=== PATIENT | female | born 1945 | race Caucasian/White ===

== ENCOUNTER 2018-12-04 08:45 | Inpatient (IN) | payer OTHER ==
[2018-12-04 09:23] VITALS: BMI 34.2
--- NOTE | 2018-12-04 10:30 | HP ---
CIWA Score Nausea/Vomitin Muscle Tremors: 4-Moderate,w/Arms Extend Anxiety: 4-Mod. Anxious/Guarded Agitation: 4-Moderately Restless Paroxysmal Sweats: 2 Orientation: 1-Uncertain about Date Tacttile Disturbances: 0-None Auditory Disturbances: 0-None Visual Disturbances: 2-Mild Sensitivity Headache: 0-None Present CIWA-Ar Total Score: 19 - Admission Criteria OASAS Guidelines: Admission for Medically Managed Detox: Requires at least one of the followin. CIWA greater than 12 2. Seizures within the past 24 hours 3. Delirium tremens within the past 24 hours 4. Hallucinations within the past 24 hours 5. Acute intervention needed for co occurring medical disorder 6. Acute intervention needed for co occurring psychiatric disorder 7. Severe withdrawal that cannot be handled at a lower level of care (continued vomiting, continued diarrhea, abnormal vital signs) requiring intravenous medication and/or fluids 8. Admission [facility] Allergies/Adverse Reactions: Allergies Allergy/AdvReac Type Severity Reaction Status Date / Time Sulfa (Sulfonamide Allergy Verified 12/04/18 10:12 Antibiotics) sulfa AdvReac Uncoded 12/04/18 10:12 History of Present Illness: Search Terms: brandy hale, 1945 Search Date: 12/04/2018 10:22:41 AM The Drug Utilization Report below displays all of the controlled substance prescriptions, if any, that your patient has filled in the last twelve months. The information displayed on this report is compiled from pharmacy submissions to the Department, and accurately reflects the information as submitted by the pharmacies. This report was requested by: Geena Cortes | Reference #: [id number] Others' Prescriptions Patient Name: Brandy Hale Date: 1945 Address: [address] [place] [address] Sex: Female Rx Written Rx Dispensed Drug Quantity Days Supply Prescriber Name 11/27/2018 11/27/2018 oxycodone-acetaminophen 7.5-325 mg tablet 120 30 Pugni, Rowan SWATCH FOLDER-C 10/13/2018 11/11/2018 lyrica 150 mg capsule 90 30 Pugni, Rowan SWATCH FOLDER-C 10/31/2018 10/31/2018 oxycodone-acetaminophen 7.5-325 mg tablet 120 30 Pugni, Rowan SWATCH F[employer]DER-C 07/17/2018 10/14/2018 lyrica 150 mg capsule 90 30 Pugni, Rowan SWATCH FOLDER-C 10/01/2018 10/01/2018 oxycodone-acetaminophen 10-325 mg tab 90 30 Pugni, Rowan SWATCH FOLDER-C 07/17/2018 09/15/2018 lyrica 150 mg capsule 90 30 Pugni, Rowan SWATCH FOLDER-C 09/08/2018 09/09/2018 oxycodone-acetaminophen 7.5-325 mg tablet 120 30 Pugni, Rowan SWATCH F[employer]DER-C 09/04/2018 09/04/2018 clonazepam 1 mg tablet 30 15 Karl Hutchinson MD 07/17/2018 08/14/2018 lyrica 150 mg capsule 90 30 Pugni, Rowan SWATCH F[employer]DER-C 08/13/2018 08/13/2018 oxycodone-acetaminophen 7.5-325 mg tablet 120 30 Pugni, Rowan SWATCH F[employer]DER-C 07/17/2018 07/17/2018 oxycodone-acetaminophen 7.5-325 mg tablet 120 30 Pugni, Rowan SWATCH FOLDER-C 05/21/2018 07/16/2018 lyrica 150 mg capsule 90 30 Pugni, Rowan SWATCH FOLDER-C 05/21/2018 06/18/2018 lyrica 150 mg capsule 90 30 Pugni, Rowan SWATCH FOLDER-C 06/18/2018 06/18/2018 oxycodone-acetaminophen 7.5-325 mg tablet 120 30 Pugni, Rowan SWATCH FOLDER-C 05/21/2018 05/21/2018 oxycodone-acetaminophen 7.5-325 mg tablet 120 30 Pugni, Rowan SWATCH FOLDER-C 05/21/2018 05/21/2018 lyrica 150 mg capsule 90 30 Pugni, Rowan SWATCH FOLDER-C 04/17/2018 04/17/2018 lyrica 150 mg capsule 90 30 Pugni, Rowan SWATCH FOLDER-C 04/17/2018 04/17/2018 oxycodone-acetaminophen 7.5-325 mg tablet 120 30 Pugni, Rowan SWATCH F[employer]DER-C 04/05/2018 04/05/2018 clonazepam 1 mg tablet 60 30 Karl Hutchinson MD 03/19/2018 03/19/2018 oxycodone-acetaminophen 7.5-325 mg tablet 120 30 Pugni, Rowan SWATCH F[employer]DER-C 01/17/2018 03/17/2018 lyrica 150 mg capsule 90 30 Pugni, Rowan SWATCH FOLDER-C 02/18/2018 02/18/2018 oxycodone-acetaminophen 7.5-325 mg tablet 120 30 Pugni, Rowan SWATCH FOLDER-C 01/17/2018 02/16/2018 lyrica 150 mg capsule 90 30 Pugni, Rowan SWATCH FOLDER-C 01/17/2018 01/17/2018 oxycodone-acetaminophen 7.5-325 mg tablet 120 30 Pugni, Rowan SWATCH F[employer]DER-C 01/17/2018 01/17/2018 lyrica 150 mg capsule 90 30 Pugni, Rowan SWATCH FOLDER-C 12/30/2017 12/30/2017 oxycodone-acetaminophen 5-325 mg tablet 40 5 Ester Lemus [employer] 11/20/2017 12/20/2017 lyrica 150 mg capsule 90 30 Pugni, Rowan SWATCH FOLDER-C 12/20/2017 12/20/2017 oxycodone-acetaminophen 7.5-325 mg tablet 120 30 Pugni, Rowan SWATCH FOLDER-C pt here requesting detox from etoh use , reprots since 2 years ago , current daily use 6-7 beers and 2 shots and 12 -pk/day , starts drinking around " any time " , denies seizures , + blackouts , + tremors , + falls while intoxicated most recently 1 week ago , taken to [facility] , denies frx , reports hypothermia was found by police . reports lates tuse this morning4 am 9 cans of beer pt is very poor historian , tangential with dissociative ideation. pmhx htn, dm , OA walker 2/2 knee issues , pneumonia , retinitis pigmentosa , wt loss 391 lbs previously currently 193 lbs . , toxemia gravidarum pshx : btl , nikole, appy , constance , left tkr x 5 and revision/ debridement , r tkr , cts shauna , psych : depression on Paxil, denies Si / hi , prior suicide attempt 2 years ago immediately after of by taking 20 lyrica called police " I just wanted to fall asleep" Exam Limitations: Clinical Condition - Ebola screening Have you traveled outside of the country in the last 21 days: No Have you had contact with anyone from an Ebola affected area: No Have you been sick,other than usual withdrawal symptoms: No Do you have a fever: No - Review of Systems Constitutional: See HPI EENT: reports: See HPI Respiratory: reports: No Symptoms reported Cardiac: reports: No Symptoms Reported GI: reports: See HPI : reports: No Symptoms Reported Musculoskeletal: reports: Joint Pain, Joint Stiffness Integumentary: reports: Bruising (left arm bruising claims was carrying bed frame , left shoulder bruising left shoulder) Neuro: reports: Headache Endocrine: reports: No Symptoms Reported Psychiatric: reports: Orientated x3, Agitated, Anxious Patient History - Patient Medical History Hx Asthma: Yes Hx Chronic Obstructive Pulmonary Disease (COPD): No Hx Cardiac Disorders: No Hx Hypertension: Yes Hx Seizures: No Hx Diabetes: Yes Hx Gastrointestinal Disorders: No Hx Genitourinary Disorders: No Hx Sexually Transmitted Disorders: No Hx Renal Disease (ESRD): No - Patient Surgical History Past Surgical History: Yes Hx Appendectomy: Yes (1984) Hx Cholecystectomy: Yes (1984) Other Surgical History: tubaligation years ago hysterectomy 1989, 5 knee replacement left foot 1998 - PPD History Previous Implant?: Yes Documented Results: Negative w/o proof - Reproductive History Patient : No - Smoking Cessation Smoking history: Never smoked Hx Chewing Tobacco Use: No Initiated information on smoking cessation: No - Substances Abused Alcohol Route: Oral Frequency: Daily Amount used: 4 shots whisky, 25 beers (12 ounces bottles) Age of first use: 71 Date of Last Use: 12/04/18 Family Disease History - Family Disease History Family Disease History: Other: Mother (retinitis pigmentosa ), Daughter ( retinitis pigmentosa ) Other Family History: 2 children , first d. 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 , lower and upper edentulous , upper dentures cannot follow penlight 2/ 2 blindness) Respiratory: Yes: Chest Non-Tender, Lungs Clear, Normal Breath Sounds Neck: Yes: No masses,lesions,Nodules, Trachea in good position Cardiology: Yes: Regular Rhythm, Regular Rate, S1, S2 Abdominal: Yes: Non Tender, Soft, Protuberent Genitourinary: Yes: Within Normal Limits Back: Yes: Normal Inspection Musculoskeletal: Yes: Joint Stiffness, Other (unsteady gait, using walker extensive scarring left knee w/ mm loss quadriceps and inability to fully extend left knee) Extremities: Yes: Tremors, Other (shauna tkr , unsteady gait , using walker for ambulation , left thigh w/ large mm loss quadriceps , cennot fully extend left leg) Neurological: Yes: Motor Strength 5/5, Depressed Affect Integumentary: Yes: Other (surgical scarring ecchymosis left arm , left shoulder petechiae UE) - Diagnostic (1) Alcohol abuse Current Visit: Yes Status: Acute BHS Breath Alcohol Content Breath Alcohol Content: 0 Urine Pregancy Test - Result Urine Test Results: Negative - NO line present Urine Drug Screen - Results Drug Screen Negative: No Urine Drug Screen Results: BZO-Benzodiazepines, OXY-Oxycodone Inpatient Rehab Admission - Rehab Decision to Admit Inpatient rehab admission?: No
[2018-12-04] MEDS ORDERED: BISMUTH SUBSALICYLATE 262 MG/15 ML BTL PO PRN (10:42)
[2018-12-04] MEDS ORDERED: MENTHOL/PHENOL 1 EACH UD MM PRN (10:42)
[2018-12-04] MEDS ORDERED: MELATONIN 5 MG TABLETS PO PRN (10:42)
[2018-12-04] MEDS ORDERED: ACETAMINOPHEN 325 MG TABLET (FP) PO PRN ×2 (10:42)
[2018-12-04] MEDS ORDERED: MAGNESIUM HYDROX 2400MG/30ML ORAL SUSPENSION 30 ML CUP PO PRN (10:42)
[2018-12-04] MEDS ORDERED: MAG HYDROX/AL HYDROX/SIMETH 30 ML UNIT-DOSE CUP PO PRN (10:42)
[2018-12-04] MEDS ORDERED: MAGNESIUM CITRATE 300 ML BOTTLE PO PRN (10:42)
[2018-12-04] MEDS: chlordiazePOXIDE HCL 25 MG CAPSULE PO PRN (14:46)
[2018-12-04] MEDS: FUROSEMIDE 40 MG TABLET (FP) PO SCH (15:11)
[2018-12-04] MEDS: chlordiazePOXIDE HCL 25 MG CAPSULE PO SCH ×2 (18:20→23:07)
[2018-12-04] MEDS: THIAMINE HCL 100 MG TABLET (FP) PO SCH (23:07)
[2018-12-05] MEDS: chlordiazePOXIDE HCL 25 MG CAPSULE PO SCH ×4 (06:16→23:12)
[2018-12-05 10:26] LABS: ALBUMIN 3.9 g/dl (3.4-5.0); ALK PHOS 192 U/L (45-117); ANION GAP 10 MMOL/L (8-16); BILIRUBIN,TOTAL 0.4 mg/dL (0.2-1); BLOOD UREA NITROGEN 18 mg/dL (7-18); CALCIUM 8.7 mg/dL (8.5-10.1); CHLORIDE 101 mmol/L (98-107); CO2 29 mmol/L (21-32); CREATININE 1.3 mg/dL (0.55-1.3); GLUCOSE,RANDOM 107 mg/dL (74-106); POTASSIUM 3.7 mmol/L (3.5-5.1); SGOT/AST 21 U/L (15-37); SGPT/ALT 20 U/L (13-61); SODIUM 139 mmol/L (136-145); TOT PROT 6.8 g/dl (6.4-8.2)
[2018-12-05 10:33] LABS: HEMATOCRIT 38.5 % (32.4-45.2); HEMOGLOBIN 12.1 GM/dL (10.7-15.3); MCHC 31.4 g/dl (32.0-36.0); MEAN CELL VOLUME 89.1 fl (80-96); MEAN PLT VOLUME 11.7 fl (7.5-11.1); PLATELET COUNT 253 K/MM3 (134-434); RBC 4.32 M/mm3 (3.60-5.2); RDW 17.3 % (11.6-15.6); WHITE BLOOD COUNT 6.9 K/mm3 (4.0-10.0)
[2018-12-05] MEDS: FUROSEMIDE 40 MG TABLET (FP) PO SCH (10:42)
[2018-12-05] MEDS: PRENATAL VITAMINS W/ FOLIC ACID TABLET (FP) PO SCH (10:42)
[2018-12-05] MEDS ORDERED: PNEUMOC 13-VAL CONJ-DIP CRM/PF 0.5 ML DISP.SYRIN IM ONE (12:00)
[2018-12-05] MEDS: IBUPROFEN 400 MG TABLET (FP) PO PRN (15:03)
[2018-12-05] MEDS: chlordiazePOXIDE HCL 25 MG CAPSULE PO PRN (15:03)
[2018-12-05] MEDS ORDERED: ALBUTEROL SO4 0.083% IH SOL 2.5 MG/3 ML VIAL.NEB. NEB PRN (16:49)
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
--- NOTE | 2018-12-05 18:28 | PN ---
[facility] CIWA - CIWA Score Nausea/Vomitin-No Nausea/No Vomiting Muscle Tremors: 2 Anxiety: 4-Mod. Anxious/Guarded Agitation: 1-Slight > Activity Paroxysmal Sweats: No Perspiration Orientation: 4Disoriented Place/Person Tacttile Disturbances: 2-Mild Itch/Numbness/Burn Auditory Disturbances: 2-Mild Harshness/Frighten Visual Disturbances: 0-None Headache: 0-None Present CIWA-Ar Total Score: 15 BHS Progress Note (SOAP) Subjective: Tremors, Anxious. Objective: PATIENT A & O X 2 (UNCERTAIN ABOUT CURRENT LOCATION). PATIENT OBSERVED AMBULATING ON UNIT. IN NO ACUTE DISTRESS. PATIENT CURRENTLY MAINTAINED ON 1:1 CONTINUOUS OBSERVATION STATUS (PREVIOUSLY ORDERED) FOR PATIENT SAFETY. PATIENT REPORTS THAT SHE HAS BEEN "HEARING VOICES THAT HAVE BEEN TELLING HER TO DO THINGS." PATIENT ALSO REPORTS THAT SHE HAS BEEN SEEING HER BROTHER STANDING NEAR DOORWAY OF ROOM. PATIENT DENIES SUICIDAL / HOMICIDAL IDEATION OR THAT VOICES ARE TELLING HER TO HARM HERSELF OR ANYONE ELSE AT THIS TIME. 12/05/18 18:29 Vital Signs Temperature 97.5 F L 12/05/18 13:00 Pulse Rate 58 L 12/05/18 13:00 Respiratory Rate 20 12/05/18 13:00 Blood Pressure 122/68 12/05/18 13:00 O2 Sat by Pulse Oximetry (%) Laboratory Tests 12/04/18 12/05/18 12/05/18 11:20 06:00 06:00 WBC 6.9 RBC 4.32 Hgb 12.1 Hct 38.5 MCV 89.1 MCH 28.0 MCHC 31.4 L RDW 17.3 H Plt Count 253 MPV 11.7 H Sodium 139 Potassium 3.7 Chloride 101 Carbon Dioxide 29 Anion Gap 10 BUN 18 Creatinine 1.3 Creat Clearance w eGFR 40.04 Random Glucose 107 H Calcium 8.7 Total Bilirubin 0.4 AST 21 ALT 20 Alkaline Phosphatase 192 H Ammonia Total Protein 6.8 Albumin 3.9 RPR Titer HIV 1&2 Antibody Screen Negative HIV P24 Antigen Negative 12/05/18 12/05/18 06:00 12:30 WBC RBC Hgb Hct MCV MCH MCHC RDW Plt Count MPV Sodium Potassium Chloride Carbon Dioxide Anion Gap BUN Creatinine Creat Clearance w eGFR Random Glucose Calcium Total Bilirubin AST ALT Alkaline Phosphatase Ammonia 49.00 H Total Protein Albumin RPR Titer Nonreactive HIV 1&2 Antibody Screen HIV P24 Antigen LABS NOTED. 12/05/18 18:30 12/05/18 18:33 12/05/18 18:34 Assessment: 12/05/18 18:29 WITHDRAWAL SYMPTOMS. HYPERAMMONEMIA. ELEVATED AP LEVEL. Plan: CONTINUE DETOX. INCREASE DAILY PO FLUID INTAKE. PSYCHIATRIC EVALUATION ORDERED FOR PATIENT. CONTINUE 1:1 CONTINUOUS OBSERVATION STATUS FOR PATIENT SAFETY. AMMONIA LEVEL ORDERED: RESULT: ELEVATED AT 49.00. LACTULOSE, 20 GM PO BID. RE-CHECK AMMONIA LEVEL AND AP LEVEL ON 12/07/2018 FOR ELEVATED ADMISSION LEVEL.
[2018-12-05] MEDS: THIAMINE HCL 100 MG TABLET (FP) PO SCH (23:11)
[2018-12-05] MEDS: LACTULOSE 20 GM/30 ML UDC (FOR ORAL USE ONLY) PO SCH (23:11)
[2018-12-06] MEDS: chlordiazePOXIDE HCL 25 MG CAPSULE PO SCH ×2 (06:05→11:02)
[2018-12-06] MEDS: FUROSEMIDE 40 MG TABLET (FP) PO SCH (11:00)
[2018-12-06] MEDS: PRENATAL VITAMINS W/ FOLIC ACID TABLET (FP) PO SCH (11:00)
[2018-12-06] MEDS: LACTULOSE 20 GM/30 ML UDC (FOR ORAL USE ONLY) PO SCH ×2 (11:00→22:47)
--- NOTE | 2018-12-06 15:58 | PN ---
S CIWA - CIWA Score Nausea/Vomitin-No Nausea/No Vomiting Muscle Tremors: 3 Anxiety: 1-Mildly Anxious Agitation: 1-Slight > Activity Paroxysmal Sweats: 3 Orientation: 1-Uncertain about Date Tacttile Disturbances: 0-None Auditory Disturbances: 0-None Visual Disturbances: 0-None Headache: 0-None Present CIWA-Ar Total Score: 9 BHS Progress Note (SOAP) Subjective: sweats "cant see" Objective: 12/06/18 15:55 Noted on 1:1 monitoring, in bed, no resp nor acute distress noted. Pt exhibited flight of ideas, states she cannot see clearly but makes out lights (Pt has impaired vision). Vital Signs Temperature 97.6 F 12/06/18 09:50 Pulse Rate 56 L 12/06/18 09:50 Respiratory Rate 18 12/06/18 09:50 Blood Pressure 143/81 12/06/18 09:50 O2 Sat by Pulse Oximetry (%) Assessment: 12/06/18 15:57 Withdrawal sx Plan: Continue 1:1 monitoring Continue detox Continue lactulose Encourage increase po hydration
[2018-12-06] MEDS ORDERED: chlordiazePOXIDE HCL 10 MG CAPSULE PO PRN (17:00)
[2018-12-06] MEDS: chlordiazePOXIDE HCL 10 MG CAPSULE PO SCH ×2 (18:00→22:47)
--- NOTE | 2018-12-06 19:24 | PN ---
[facility] Progress Note Note: Psychiatry Attending's note (follow-up) : Chart reviewed. Met with the patient. For re-assessment of mental status. Patient is under Constant Observation for safety. Ms Hale recognizes content writer. Agrees to discuss treatment. She remains alert and fully oriented. Pleasant on approach. Maintains coherent, relevant and goal-directed conversation. Patient denies suicidal/homicidal ideation, intent or plan. Has clear goals : go home, take care of her needs and be with family. No delusions elicited. Patient denies experiencing hallucinations. Ms Hale needs encouragement to eat her meals. Receptive to re-directions. Patient is NOT delusional : she expresses concern over weight gain. Concern is legitimate in view of past history of morbid obesity. Somatic complaint : fatigue." I miss my family and my home ". Issue of citalopram is revisited with the patient : she declines. Plan : . Continue constant observation. . For medical reasons. . Monitor patient's food intake. . Encouragement and support. . Falls precautions. . Obtain EKG. Ordered by Dr Rojo. . Discussed with nurse on duty.
[2018-12-06] MEDS: THIAMINE HCL 100 MG TABLET (FP) PO SCH (22:47)
[2018-12-07] MEDS: IBUPROFEN 400 MG TABLET (FP) PO PRN (01:26)
[2018-12-07] MEDS: chlordiazePOXIDE HCL 10 MG CAPSULE PO SCH (06:05)
--- NOTE | 2018-12-07 08:36 | DS ---
[facility] Detox Discharge Summary Admission Date: 12/04/18 Discharge Date: 12/07/18 - History Present History: Alcohol Dependence Additional Comments: 73 years old female admitted 12/04/18 for withdrawal stabilization completed detox regimen ammonia serum elevatino begin lactulose e prescribed to pharmacy aftercare as per counselor arrangement - Physical Exam Results Vital Signs: Vital Signs Temperature 97 F L 12/07/18 06:38 Pulse Rate 48 L 12/07/18 06:38 Respiratory Rate 16 12/07/18 06:38 Blood Pressure 117/70 12/07/18 06:38 O2 Sat by Pulse Oximetry (%) Pertinent Admission Physical Exam Findings: alcohol withdrawal sx Laboratory Last Values WBC 6.9 K/mm3 (4.0-10.0) 12/05/18 06:00 RBC 4.32 M/mm3 (3.60-5.2) 12/05/18 06:00 Hgb 12.1 GM/dL (10.7-15.3) 12/05/18 06:00 Hct 38.5 % (32.4-45.2) 12/05/18 06:00 MCV 89.1 fl (80-96) 12/05/18 06:00 MCH 28.0 pg (25.7-33.7) 12/05/18 06:00 MCHC 31.4 g/dl (32.0-36.0) L 12/05/18 06:00 RDW 17.3 % (11.6-15.6) H 12/05/18 06:00 Plt Count 253 K/MM3 (134-434) 12/05/18 06:00 MPV 11.7 fl (7.5-11.1) H 12/05/18 06:00 Sodium 139 mmol/L (136-145) 12/05/18 06:00 Potassium 3.7 mmol/L (3.5-5.1) 12/05/18 06:00 Chloride 101 mmol/L (98-107) 12/05/18 06:00 Carbon Dioxide 29 mmol/L (21-32) 12/05/18 06:00 Anion Gap 10 MMOL/L (8-16) 12/05/18 06:00 BUN 18 mg/dL (7-18) 12/05/18 06:00 Creatinine 1.3 mg/dL (0.55-1.3) 12/05/18 06:00 Creat Clearance w eGFR 40.04 (>60) 12/05/18 06:00 POC Glucometer 94 UNITS (80-120) 12/06/18 19:03 Random Glucose 107 mg/dL (74-106) H 12/05/18 06:00 Calcium 8.7 mg/dL (8.5-10.1) 12/05/18 06:00 Total Bilirubin 0.4 mg/dL (0.2-1) 12/05/18 06:00 AST 21 U/L (15-37) 12/05/18 06:00 ALT 20 U/L (13-61) 12/05/18 06:00 Alkaline Phosphatase 139 U/L (45-117) H 12/07/18 07:30 Ammonia 75.90 umol/L (11-32) H 12/07/18 07:30 Total Protein 6.8 g/dl (6.4-8.2) 12/05/18 06:00 Albumin 3.9 g/dl (3.4-5.0) 12/05/18 06:00 RPR Titer Nonreactive (NONREACTIVE) 12/05/18 06:00 HIV 1&2 Antibody Screen Negative 12/04/18 11:20 HIV P24 Antigen Negative 12/04/18 11:20 lab noted lactulose qid - Treatment Hospital Course: Detox Protocol Followed, Detoxed Safely, Responded well, Discharged Condition Good, Rehab Referral Accepted Patient has Accepted a Rehab Referral to: as per counselor arrangement - Medication Discharge Medications: Ambulatory Orders Furosemide [Lasix] 40 mg PO DAILY 12/04/18 Oxycodone HCl/Acetaminophen [Oxycodon-Acetaminophen 7.5-325] 1 each PO QID 12/04 Paroxetine HCl [Paxil -] 30 mg PO DAILY 12/04/18 Pregabalin [Lyrica] 150 mg PO TID 12/04/18 Lactulose (Oral Use) [Cephulac -] 20 gm PO QID #1 udc 12/07/18 - Diagnosis (1) Increased ammonia level Status: Acute (2) Alcohol withdrawal Status: Acute Qualifiers: Complication of substance-induced condition: uncomplicated Qualified Code(s ): F10.230 - Alcohol dependence with withdrawal, uncomplicated - AMA Did Patient Leave Against Medical Advice: No
[2018-12-07 09:35] VITALS: BP 114/55; PULSE 61; TEMP 97.3
[2018-12-07] MEDS: LACTULOSE 20 GM/30 ML UDC (FOR ORAL USE ONLY) PO SCH (09:36)
[2018-12-07] MEDS: PRENATAL VITAMINS W/ FOLIC ACID TABLET (FP) PO SCH (09:36)
[2018-12-07] MEDS: FUROSEMIDE 40 MG TABLET (FP) PO SCH (09:36)
[2018-12-07] MEDS ORDERED: chlordiazePOXIDE HCL 10 MG CAPSULE PO SCH (17:00)
--- NOTE | 2018-12-08 11:22 | EKG ---
Test Reason : Blood Pressure : / mmHG Vent. Rate : 064 BPM Atrial Rate : 064 BPM P-R Int : 196 ms QRS Dur : 098 ms QT Int : 438 ms P-R-T Axes : 085 004 028 degrees QTc Int : 451 ms NORMAL SINUS RHYTHM NORMAL ECG NO PREVIOUS ECGS AVAILABLE Confirmed by RITA HAM, NATHANIEL ([id number]) on 12/08/2018 11:21:34 AM Referred By: EVIN AMAYA Confirmed By:NATHANIEL SALINAS MD
== END 2018-12-07 09:40 | disposition home or self-care (01) | DRG 897 ==
LOC: YASAS 08:45 → Y3N 12:28
PROVIDERS: ADMIT Surgery; ATTEND Surgery
PROC: HZ2ZZZZ Detoxification Services for Substance Abuse Treatment (ICD-10-PCS; principal; 2018-12-04)
DX: F19.230 Other psychoactive substance dependence with withdrawal, uncomplicated (principal); E72.20 Disorder of urea cycle metabolism, unspecified; F10.230 Alcohol dependence with withdrawal, uncomplicated; I10 Essential (primary) hypertension; E11.9 Type 2 diabetes mellitus without complications; G47.00 Insomnia, unspecified; R74.8 Abnormal levels of other serum enzymes; J45.909 Unspecified asthma, uncomplicated; H54.7 Unspecified visual loss; Z91.19 Patient's noncompliance with other medical treatment and regimen; Z88.2 Allergy status to sulfonamides
CPT/HCPCS: 36415; 80053; 82140; 82962; 84075; 85027; 86593; 87389; 90670; 93005; 93010